=== PATIENT | male | born 1940 | race Caucasian/White ===

== ENCOUNTER 2016-03-11 19:29 | Inpatient (IN) | payer OTHER, MEDICARE ==
[~2016-03-11] VITALS: Ht 185.4 cm; Wt 62.4 kg
[2016-03-11 19:25] VITALS: O2SAT 97
[~2016-03-11 19:29] MED LIST: ADVA250A INH; ALBU1.25 NEB; CIPR500T2 PO; LISI2.5T3 PO; MORP30SU PR; MS C30TA5 PO; OMEP20CA5 PO; OXYC-103 PO; PRED50TA PO; VENTAER INH
[2016-03-11] MEDS ORDERED: ceFAZolin 2 GM PREMIX 50 ML ONE (19:33)
[2016-03-11] MEDS ORDERED: DIPHTH/TETANUS/ACEL PERTUSSIS (BOOSTER) 0.5 ML VIAL/PFS IM ONE ×2 (19:33→19:59)
[2016-03-11] MEDS ORDERED: MORPHINE SULFATE 8 MG/ML INJ ONE (19:44)
[2016-03-11] MEDS ORDERED: ONDANSETRON HCL 4 MG/2 ML VIAL ONE (19:48)
[2016-03-11] MEDS ORDERED: ceFAZolin 2 GM PREMIX 50 ML IV STA (19:59)
[2016-03-11] MEDS ORDERED: MORPHINE SULFATE 4 MG/ML INJ IV ONE (20:00)
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
[2016-03-11] MEDS ORDERED: IOHEXOL 350 MG/ML 10 ML VIAL (for RAD DIAG) IV ONE (20:03)
[2016-03-11 20:04] LABS: AUTOMATED NEUTROPHIL # 12.4 TH/MM3 (1.8-7.7); BASOPHIL % 0.2 % (0.0-2.0); EOSINOPHIL # 0.2 TH/MM3 (0-0.4); EOSINOPHIL % 1.3 % (0.0-4.0); HEMATOCRIT 37.9 % (39.0-51.0); HEMO FLAGS DIFF FINAL; LYMPH % 8.9 % (9.0-44.0); LYMPHOCYTE # 1.3 TH/MM3 (1.0-4.8); MEAN CELL VOLUME 90.8 FL (80.0-100.0); MEAN CORPUSCULAR HEMOGLOBIN 30.6 PG (27.0-34.0); MEAN CORPUSCULAR HGB CONC 33.7 % (32.0-36.0); MONO % 5.6 % (0.0-8.0); PLATELET COUNT 227 TH/MM3 (150-450); RED BLOOD COUNT 4.18 MIL/MM3 (4.50-5.90); RED CELL DISTRIBUTION WIDTH 13.5 % (11.6-17.2); WHITE BLOOD COUNT 14.8 TH/MM3 (4.0-11.0)
[2016-03-11 20:05] LABS: I-STAT POTASSIUM 4.4 MMOL/L (3.5-4.9)
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
[2016-03-11 20:15] VITALS: BP 133/66; PULSE 72; RESP 18; TEMP 98.2; O2SAT 97
[2016-03-11 20:15] LABS: APTT (PATIENT) 27.3 SEC (24.3-30.1); PROTHROMBIN TIME - PATIENT 11.4 SEC (9.8-11.6)
[2016-03-11] MEDS ORDERED: MORPHINE SULFATE 8 MG/ML INJ IV PUSH ONE (20:15)
[2016-03-11] MEDS ORDERED: LORazepam 2 MG TAB PO PRN (20:15)
[2016-03-11] MEDS ORDERED: ONDANSETRON HCL 4 MG/2 ML VIAL IV PRN (20:15)
[2016-03-11] MEDS ORDERED: FLUMAZENIL 0.5 MG/5 ML VIAL IV PUSH PRN (20:15)
[2016-03-11] MEDS ORDERED: LORazepam 1 MG TAB PO PRN (20:15)
[2016-03-11] MEDS ORDERED: MISCELLANEOUS NURSING INFORMATION XX SCH (20:15)
[2016-03-11] MEDS ORDERED: ACETAMINOPHEN/HYDROcodone 325 MG/5 MG TAB PO PRN (20:15)
[2016-03-11] MEDS ORDERED: ACETAMINOPHEN 325 MG TAB PO PRN (20:15)
[2016-03-11] MEDS ORDERED: ENALAPRILAT 1.25 MG/ML VIAL IV PRN (20:15)
[2016-03-11] MEDS ORDERED: MAGNESIUM HYDROXIDE SUSP 30 ML CUP PO PRN (20:15)
[2016-03-11] MEDS ORDERED: CHLORHEXIDINE GLUCONATE 2 % 1 PACK (2 CLOTHS) TOP PRN (20:15)
[2016-03-11] MEDS ORDERED: LORazepam 2 MG/ML VIAL IV PUSH PRN ×4 (20:15)
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
[2016-03-11 20:44] VITALS: O2SAT 97
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
[2016-03-11] MEDS: BACITRACIN TOP OINT 15 GM TUBE TOP SCH (21:00)
[2016-03-11] MEDS ORDERED: DOCUSATE SODIUM 100 MG CAP PO SCH (21:00)
[2016-03-11] MEDS ORDERED: PANTOPRAZOLE SODIUM 40 MG VIAL IVP SCH (21:00)
[2016-03-11] MEDS: MORPHINE SULFATE 4 MG/ML INJ IV PRN (21:28)
[2016-03-11] MEDS: FOLIC ACID 1 MG TAB PO SCH (21:53)
[2016-03-11] MEDS: THIAMINE HCL 100 MG TAB PO SCH (21:53)
[2016-03-11] MEDS: MULTIVITAMIN TAB PO SCH (21:53)
[2016-03-11] MEDS: SODIUM CHLOR 0.9% 1000 ML INJ 1,000 ML IV SCH (21:54)
[2016-03-11 22:00] VITALS: PULSE 62
[2016-03-11] MEDS: ACETAMINOPHEN/HYDROcodone 325 MG/5 MG TAB PO PRN (22:07)
[2016-03-11] MEDS: RESP: ALBUTEROL 2.5 MG/3 ML NEB (SCH) NEB (23:55)
[2016-03-12] VITALS (12 sets, daily range): BP systolic 83–139; BP diastolic 50–71; PULSE 56–71; RESP 16–31; TEMP 97.9–98.8; O2SAT 93–99
[2016-03-12 03:48] LABS: HEMATOCRIT 31.5 % (39.0-51.0); MEAN CELL VOLUME 90.8 FL (80.0-100.0); MEAN CORPUSCULAR HEMOGLOBIN 30.9 PG (27.0-34.0); PLATELET COUNT 193 TH/MM3 (150-450); RED BLOOD COUNT 3.46 MIL/MM3 (4.50-5.90); RED CELL DISTRIBUTION WIDTH 13.4 % (11.6-17.2); REVIEW FLAG FINAL; WHITE BLOOD COUNT 10.9 TH/MM3 (4.0-11.0)
[2016-03-12] MEDS: RESP: ALBUTEROL 2.5 MG/3 ML NEB (SCH) NEB ×3 (03:50→13:22)
[2016-03-12] MEDS: CHLORHEXIDINE GLUCONATE 2 % 1 PACK (2 CLOTHS) TOP SCH (04:43)
[2016-03-12] MEDS: MORPHINE SULFATE 4 MG/ML INJ IV PRN ×3 (05:11→12:47)
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
[2016-03-12] MEDS ORDERED: LACTULOSE SYRUP 20 GM/30 ML CUP PO PRN (07:45)
[2016-03-12] MEDS ORDERED: ACETAMINOPHEN 1000 MG/100 ML VIAL IV SCH (08:00)
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
[2016-03-12] MEDS: MAGNESIUM HYDROXIDE SUSP 30 ML CUP PO SCH (09:13)
[2016-03-12] MEDS: BACITRACIN TOP OINT 15 GM TUBE TOP SCH ×2 (09:14→20:48)
[2016-03-12] MEDS: THIAMINE HCL 100 MG TAB PO SCH (09:14)
[2016-03-12] MEDS: MULTIVITAMIN TAB PO SCH (09:14)
[2016-03-12] MEDS: FOLIC ACID 1 MG TAB PO SCH (09:14)
[2016-03-12] MEDS: DOCUSATE SODIUM 50 MG/SENNA 8.6 MG TAB PO SCH ×2 (09:14→20:47)
[2016-03-12] MEDS: LIDOCAINE HCL 5% PATCH TD SCH (09:15)
[2016-03-12] MEDS: SODIUM CHLOR 0.9% 1000 ML INJ 1,000 ML IV SCH ×2 (09:15→22:53)
[2016-03-12 09:26] LABS: BLOOD, URINE TRACE (NEG); GLUCOSE,URINE NEG (NEG); HYALINE CAST, URINE 1 /lpf (RARE); KETONE, URINE NEG (NEG); NITRITE,URINE NEG (NEG); SQUAMOUS EPITHELIAL CELL URINE 1 /hpf (0-5); URINE COLOR YELLOW (YELLW/STRAW)
[2016-03-12 09:28] LABS: COMMENT (UR) CULT NOT INDICATED; CULTURE IF INDICATED CULT NOT INDICATED
[2016-03-12 11:36] LABS: AUTOMATED NEUTROPHIL # 9.6 TH/MM3 (1.8-7.7); BASOPHIL % 0.3 % (0.0-2.0); EOSINOPHIL # 0.2 TH/MM3 (0-0.4); EOSINOPHIL % 1.5 % (0.0-4.0); HEMO FLAGS DIFF FINAL; LYMPH % 7.3 % (9.0-44.0); LYMPHOCYTE # 0.8 TH/MM3 (1.0-4.8); MEAN CORPUSCULAR HEMOGLOBIN 30.3 PG (27.0-34.0); MEAN CORPUSCULAR HGB CONC 32.9 % (32.0-36.0); MONO % 6.8 % (0.0-8.0); NEUT % 84.1 % (16.0-70.0); PLATELET COUNT 202 TH/MM3 (150-450); RED BLOOD COUNT 3.69 MIL/MM3 (4.50-5.90); RED CELL DISTRIBUTION WIDTH 13.4 % (11.6-17.2); WHITE BLOOD COUNT 11.4 TH/MM3 (4.0-11.0)
[2016-03-12 12:00] LABS: BICARBONATE 28.7 MEQ/L (21.0-32.0); MAGNESIUM 2.1 MG/DL (1.5-2.5); POTASSIUM 3.6 MEQ/L (3.5-5.1)
[2016-03-12 12:26] LABS: CKMB 7.4 NG/ML (0.5-3.6)
[2016-03-12] MEDS ORDERED: guaiFENesin/CODEINE SYRUP 200 MG/20 MG/10 ML CUP PO PRN (13:30)
[2016-03-12] MEDS ORDERED: RESP: ALBUTEROL 2.5 MG/3 ML NEB (PRN) INH (13:30)
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
[2016-03-12] MEDS ORDERED: SYMB80AE INH (14:48)
[2016-03-12] MEDS ORDERED: ATOR20TA15 PO (14:48)
[2016-03-12] MEDS ORDERED: MIRT30TA PO (14:48)
[2016-03-12] MEDS ORDERED: ZOLP5TAB3 PO (14:48)
[2016-03-12] MEDS ORDERED: LISI10TA PO (14:48)
[2016-03-12] MEDS ORDERED: MEGE40TA PO (14:48)
[2016-03-12] MEDS ORDERED: AZITHROMYCIN 250 MG TAB PO ONE (15:00)
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
[2016-03-12] MEDS: methylPREDNISolone SOD SUCC 125 MG/2 ML VIAL IVP SCH ×2 (15:19→20:47)
[2016-03-12] MEDS: RESP: ALBUTEROL 2.5 MG/IPRATROPIUM 0.5 MG NEB (SCH) INH ×2 (17:34→22:00)
[2016-03-12] MEDS: ACETAMINOPHEN/HYDROcodone 325 MG/5 MG TAB PO PRN (17:58)
[2016-03-12] MEDS: guaiFENesin E.R. 600 MG TAB PO SCH (20:47)
[2016-03-12] MEDS: cefTRIAXone INJ 1,000 MG in SODIUM CHLORIDE 0.9% INJ 100 ML IV SCH (20:47)
[2016-03-12] MEDS: REMOVE OLD PATCH T-DERMAL SCH (21:00)
[2016-03-13] VITALS (10 sets, daily range): BP systolic 108–170; BP diastolic 58–81; PULSE 62–73; RESP 15–24; TEMP 97.5–98.5; O2SAT 93–98
[2016-03-13] MEDS: ACETAMINOPHEN/HYDROcodone 325 MG/5 MG TAB PO PRN ×2 (02:39→08:47)
[2016-03-13] MEDS: methylPREDNISolone SOD SUCC 125 MG/2 ML VIAL IVP SCH ×2 (02:39→08:43)
[2016-03-13] MEDS: RESP: ALBUTEROL 2.5 MG/IPRATROPIUM 0.5 MG NEB (SCH) INH ×4 (03:22→23:30)
[2016-03-13] MEDS: CHLORHEXIDINE GLUCONATE 2 % 1 PACK (2 CLOTHS) TOP SCH (04:00)
[2016-03-13 04:38] LABS: BASOPHIL % 0.1 % (0.0-2.0); HEMATOCRIT 32.7 % (39.0-51.0); HEMO FLAGS DIFF FINAL; LYMPH % 4.2 % (9.0-44.0); LYMPHOCYTE # 0.4 TH/MM3 (1.0-4.8); MEAN CELL VOLUME 90.1 FL (80.0-100.0); MEAN CORPUSCULAR HEMOGLOBIN 31.5 PG (27.0-34.0); MEAN CORPUSCULAR HGB CONC 34.9 % (32.0-36.0); MONO % 1.7 % (0.0-8.0); PLATELET COUNT 189 TH/MM3 (150-450); RED BLOOD COUNT 3.62 MIL/MM3 (4.50-5.90); RED CELL DISTRIBUTION WIDTH 13.7 % (11.6-17.2); WHITE BLOOD COUNT 10.6 TH/MM3 (4.0-11.0)
[2016-03-13 05:08] LABS: POTASSIUM 4.2 MEQ/L (3.5-5.1)
[2016-03-13] MEDS ORDERED: DEXTROSE 50% IN WATER 50 ML VIAL(D50) IV PUSH PRN (05:45)
[2016-03-13] MEDS ORDERED: GLUCAGON 1 MG/ML VIAL OTHER PRN (05:45)
[2016-03-13] MEDS: INSULIN ASPART SUPPLEMENTAL SCALE SQ SCH ×3 (06:53→21:00)
[2016-03-13] MEDS: guaiFENesin E.R. 600 MG TAB PO SCH ×2 (08:43→21:22)
[2016-03-13] MEDS: DOCUSATE SODIUM 50 MG/SENNA 8.6 MG TAB PO SCH ×2 (08:43→21:00)
[2016-03-13] MEDS: MULTIVITAMIN TAB PO SCH (08:43)
[2016-03-13] MEDS: THIAMINE HCL 100 MG TAB PO SCH (08:43)
[2016-03-13] MEDS: PANTOPRAZOLE SOD 40 MG DELAYED RELEASE TAB PO SCH (08:43)
[2016-03-13] MEDS: FOLIC ACID 1 MG TAB PO SCH (08:43)
[2016-03-13] MEDS: LIDOCAINE HCL 5% PATCH TD SCH (08:44)
[2016-03-13] MEDS: BACITRACIN TOP OINT 15 GM TUBE TOP SCH ×2 (08:44→21:23)
[2016-03-13] MEDS: MAGNESIUM HYDROXIDE SUSP 30 ML CUP PO SCH (08:51)
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
[2016-03-13] MEDS ORDERED: NON-FORMULARY DRUG (Lisinopril-Hctz 1 TAB) PO SCH (11:30)
[2016-03-13 12:28] LABS: HEMOGLOBIN A1a 1.1 %; HEMOGLOBIN A1b 1.7 %; HEMOGLOBIN Ao 84.2 %; HEMOGLOBIN LA1C 2.8 %; HEMOGLOBIN P3 5.7 %
[2016-03-13] MEDS: AZITHROMYCIN 250 MG TAB PO SCH (13:49)
[2016-03-13] MEDS: ACETAMINOPHEN 1000 MG/100 ML VIAL IV SCH ×3 (13:50→22:30)
[2016-03-13] MEDS: predniSONE 20 MG TAB PO SCH (13:50)
[2016-03-13] MEDS: HYDROCHLOROTHIAZIDE 25 MG TAB PO SCH (13:50)
[2016-03-13] MEDS: CYCLOBENZAPRINE HCL 10 MG TAB PO SCH ×2 (13:50→21:22)
[2016-03-13] MEDS: LISINOPRIL 10 MG TAB PO SCH (13:50)
[2016-03-13] MEDS: ENOXAPARIN SODIUM 40 MG/0.4 ML SYRINGE SQ SCH (13:51)
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
[2016-03-13] MEDS: BUDESONIDE-FORMOTEROL 80/4.5 MCG INHALER INH SCH (21:00)
[2016-03-13] MEDS: MIRTAZAPINE 15 MG TAB PO SCH (21:00)
[2016-03-13] MEDS: REMOVE OLD PATCH T-DERMAL SCH (21:00)
[2016-03-13] MEDS: ATORVASTATIN 20 MG TAB PO SCH (21:22)
[2016-03-13] MEDS: cefTRIAXone INJ 1,000 MG in SODIUM CHLORIDE 0.9% INJ 100 ML IV SCH (21:23)
[2016-03-14] MEDS: CHLORHEXIDINE GLUCONATE 2 % 1 PACK (2 CLOTHS) TOP SCH (03:33)
[2016-03-14] MEDS: ACETAMINOPHEN 1000 MG/100 ML VIAL IV SCH (04:39)
[2016-03-14] MEDS: CYCLOBENZAPRINE HCL 10 MG TAB PO SCH ×3 (04:39→21:58)
[2016-03-14] MEDS: INSULIN ASPART SUPPLEMENTAL SCALE SQ SCH ×3 (05:51→15:48)
[2016-03-14 08:00] VITALS: BP 172/77; PULSE 66; RESP 17; TEMP 96.7; O2SAT 96
[2016-03-14] MEDS: RESP: ALBUTEROL 2.5 MG/IPRATROPIUM 0.5 MG NEB (SCH) INH ×3 (08:40→21:17)
[2016-03-14] MEDS: LIDOCAINE HCL 5% PATCH TD SCH (08:44)
[2016-03-14] MEDS: MEGESTROL ACETATE 40 MG TAB PO SCH (08:45)
[2016-03-14] MEDS: guaiFENesin E.R. 600 MG TAB PO SCH ×2 (08:45→21:58)
[2016-03-14] MEDS: MULTIVITAMIN TAB PO SCH (08:45)
[2016-03-14] MEDS: FOLIC ACID 1 MG TAB PO SCH (08:45)
[2016-03-14] MEDS: HYDROCHLOROTHIAZIDE 25 MG TAB PO SCH (08:45)
[2016-03-14] MEDS: predniSONE 20 MG TAB PO SCH (08:46)
[2016-03-14] MEDS: LISINOPRIL 10 MG TAB PO SCH (08:46)
[2016-03-14] MEDS: DOCUSATE SODIUM 50 MG/SENNA 8.6 MG TAB PO SCH ×2 (08:46→21:00)
[2016-03-14] MEDS: THIAMINE HCL 100 MG TAB PO SCH (08:47)
[2016-03-14] MEDS: PANTOPRAZOLE SOD 40 MG DELAYED RELEASE TAB PO SCH (08:47)
[2016-03-14] MEDS: BUDESONIDE-FORMOTEROL 80/4.5 MCG INHALER INH SCH ×2 (08:48→22:09)
[2016-03-14] MEDS: MAGNESIUM HYDROXIDE SUSP 30 ML CUP PO SCH (08:48)
[2016-03-14] MEDS: BACITRACIN TOP OINT 15 GM TUBE TOP SCH ×2 (08:48→22:09)
[2016-03-14] MEDS ORDERED: BISACODYL 10 MG SUPP RECTAL ONE (09:00)
[2016-03-14] MEDS ORDERED: BISACODYL EC 5 MG TABEC PO ONE (09:00)
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
[2016-03-14] MEDS: ENOXAPARIN SODIUM 40 MG/0.4 ML SYRINGE SQ SCH (11:40)
[2016-03-14 12:00] VITALS: BP 143/68; PULSE 62; RESP 18; TEMP 96.8; O2SAT 96
[2016-03-14] MEDS: AZITHROMYCIN 250 MG TAB PO SCH (13:16)
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
[2016-03-14 15:36] VITALS: O2SAT 91
[2016-03-14] MEDS: ACETAMINOPHEN/HYDROcodone 325 MG/5 MG TAB PO PRN (15:48)
[2016-03-14 16:00] VITALS: BP 124/65; PULSE 74; RESP 19; TEMP 97; O2SAT 92
[2016-03-14 20:00] VITALS: BP 99/57; PULSE 67; RESP 18; TEMP 97.8; O2SAT 94
[2016-03-14] MEDS: REMOVE OLD PATCH T-DERMAL SCH (21:00)
[2016-03-14] MEDS: MIRTAZAPINE 15 MG TAB PO SCH (21:00)
[2016-03-14] MEDS: ATORVASTATIN 20 MG TAB PO SCH (21:57)
[2016-03-14] MEDS: cefTRIAXone INJ 1,000 MG in SODIUM CHLORIDE 0.9% INJ 100 ML IV SCH (21:58)
[2016-03-15] VITALS (8 sets, daily range): BP systolic 106–145; BP diastolic 59–89; PULSE 71–84; RESP 16–21; TEMP 97–98.2; O2SAT 78–98
[2016-03-15] MEDS: RESP: ALBUTEROL 2.5 MG/IPRATROPIUM 0.5 MG NEB (SCH) INH ×4 (03:38→21:02)
[2016-03-15] MEDS: CYCLOBENZAPRINE HCL 10 MG TAB PO SCH ×3 (05:56→20:52)
[2016-03-15] MEDS: ACETAMINOPHEN/HYDROcodone 325 MG/5 MG TAB PO PRN ×3 (08:24→17:46)
[2016-03-15] MEDS: predniSONE 20 MG TAB PO SCH (08:25)
[2016-03-15] MEDS: guaiFENesin E.R. 600 MG TAB PO SCH ×2 (08:25→20:52)
[2016-03-15] MEDS: MAGNESIUM HYDROXIDE SUSP 30 ML CUP PO SCH (08:25)
[2016-03-15] MEDS: MEGESTROL ACETATE 40 MG TAB PO SCH (08:25)
[2016-03-15] MEDS: LISINOPRIL 10 MG TAB PO SCH (08:26)
[2016-03-15] MEDS: HYDROCHLOROTHIAZIDE 25 MG TAB PO SCH (08:26)
[2016-03-15] MEDS: PANTOPRAZOLE SOD 40 MG DELAYED RELEASE TAB PO SCH (08:26)
[2016-03-15] MEDS: DOCUSATE SODIUM 50 MG/SENNA 8.6 MG TAB PO SCH ×2 (08:27→20:52)
[2016-03-15] MEDS: LIDOCAINE HCL 5% PATCH TD SCH (08:28)
[2016-03-15] MEDS: ENOXAPARIN SODIUM 40 MG/0.4 ML SYRINGE SQ SCH (11:00)
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
[2016-03-15] MEDS: AZITHROMYCIN 250 MG TAB PO SCH (14:18)
[2016-03-15] MEDS: BUDESONIDE-FORMOTEROL 80/4.5 MCG INHALER INH SCH ×2 (14:20→20:58)
[2016-03-15] MEDS: BACITRACIN TOP OINT 15 GM TUBE TOP SCH ×2 (14:27→20:58)
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
[2016-03-15] MEDS: MIRTAZAPINE 15 MG TAB PO SCH (20:52)
[2016-03-15] MEDS: cefTRIAXone INJ 1,000 MG in SODIUM CHLORIDE 0.9% INJ 100 ML IV SCH (20:52)
[2016-03-15] MEDS: ATORVASTATIN 20 MG TAB PO SCH (20:52)
[2016-03-15] MEDS: ZOLPIDEM TARTRATE 5 MG TAB PO PRN (20:52)
[2016-03-15] MEDS: REMOVE OLD PATCH T-DERMAL SCH (20:57)
[2016-03-16] VITALS (7 sets, daily range): BP systolic 95–137; BP diastolic 54–71; PULSE 66–112; RESP 16–20; TEMP 96.4–98.3; O2SAT 96–99
[2016-03-16] MEDS: RESP: ALBUTEROL 2.5 MG/IPRATROPIUM 0.5 MG NEB (SCH) INH ×4 (04:05→19:12)
[2016-03-16] MEDS: CYCLOBENZAPRINE HCL 10 MG TAB PO SCH ×3 (06:24→20:55)
[2016-03-16] MEDS: ACETAMINOPHEN/HYDROcodone 325 MG/5 MG TAB PO PRN ×2 (06:25→12:15)
[2016-03-16] MEDS: LISINOPRIL 10 MG TAB PO SCH (08:23)
[2016-03-16] MEDS: MEGESTROL ACETATE 40 MG TAB PO SCH (08:23)
[2016-03-16] MEDS: predniSONE 20 MG TAB PO SCH (08:24)
[2016-03-16] MEDS: guaiFENesin E.R. 600 MG TAB PO SCH ×2 (08:24→22:38)
[2016-03-16] MEDS: PANTOPRAZOLE SOD 40 MG DELAYED RELEASE TAB PO SCH (08:24)
[2016-03-16] MEDS: DOCUSATE SODIUM 50 MG/SENNA 8.6 MG TAB PO SCH ×2 (08:25→20:56)
[2016-03-16] MEDS: HYDROCHLOROTHIAZIDE 25 MG TAB PO SCH (08:25)
[2016-03-16] MEDS: MAGNESIUM HYDROXIDE SUSP 30 ML CUP PO SCH (08:26)
[2016-03-16] MEDS: LIDOCAINE HCL 5% PATCH TD SCH (08:26)
[2016-03-16] MEDS: BUDESONIDE-FORMOTEROL 80/4.5 MCG INHALER INH SCH ×2 (08:26→20:56)
[2016-03-16] MEDS: BACITRACIN TOP OINT 15 GM TUBE TOP SCH ×2 (09:00→20:57)
[2016-03-16] MEDS: ENOXAPARIN SODIUM 40 MG/0.4 ML SYRINGE SQ SCH (12:15)
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
[2016-03-16] MEDS ORDERED: ceFAZolin 2 GM PREMIX 50 ML IV SCH (12:45)
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
[2016-03-16] MEDS: AZITHROMYCIN 250 MG TAB PO SCH (14:55)
[2016-03-16] MEDS ORDERED: OXYC1CAP PO (15:09)
[2016-03-16] MEDS ORDERED: ALBU0.08 NEB (15:53)
[2016-03-16] MEDS ORDERED: ALBU6.7H INH (15:53)
[2016-03-16] MEDS ORDERED: MORP15TA73 PO ×3 (15:53)
[2016-03-16] MEDS ORDERED: FLUO0.05 TOPICAL (15:53)
[2016-03-16] MEDS ORDERED: LOPE2CAP PO (15:53)
[2016-03-16] MEDS ORDERED: LISI10TA PO (15:53)
[2016-03-16] MEDS ORDERED: ENSULIQ8 PO (15:55)
[2016-03-16] MEDS ORDERED: MORPHINE SULFATE 4 MG/ML INJ IV PRN (16:00)
[2016-03-16] MEDS: ZOLPIDEM TARTRATE 5 MG TAB PO PRN (20:53)
[2016-03-16] MEDS: cefTRIAXone INJ 1,000 MG in SODIUM CHLORIDE 0.9% INJ 100 ML IV SCH (20:53)
[2016-03-16] MEDS: MIRTAZAPINE 15 MG TAB PO SCH (20:55)
[2016-03-16] MEDS: ATORVASTATIN 20 MG TAB PO SCH (20:55)
[2016-03-16] MEDS: REMOVE OLD PATCH T-DERMAL SCH (20:57)
[2016-03-17] VITALS: BP 111/63; PULSE 66; RESP 20; TEMP 96.9; O2SAT 95
[2016-03-17] MEDS: RESP: ALBUTEROL 2.5 MG/IPRATROPIUM 0.5 MG NEB (SCH) INH ×4 (03:17→22:00)
[2016-03-17] MEDS: CYCLOBENZAPRINE HCL 10 MG TAB PO SCH ×3 (06:00→20:11)
[2016-03-17] MEDS ORDERED: PHENYLEPH/NS 1000 MCG/10 ML SYR IV ONE (07:59)
[2016-03-17] MEDS ORDERED: PROPOFOL 200 MG/20 ML AMP IV ONE (07:59)
[2016-03-17 08:00] VITALS: BP 140/80; PULSE 68; RESP 16; TEMP 96.7; O2SAT 95
[2016-03-17] MEDS: guaiFENesin E.R. 600 MG TAB PO SCH ×2 (08:29→20:10)
[2016-03-17] MEDS: predniSONE 20 MG TAB PO SCH (08:29)
[2016-03-17] MEDS: LISINOPRIL 10 MG TAB PO SCH (08:29)
[2016-03-17] MEDS: PANTOPRAZOLE SOD 40 MG DELAYED RELEASE TAB PO SCH (08:30)
[2016-03-17] MEDS: HYDROCHLOROTHIAZIDE 25 MG TAB PO SCH (08:30)
[2016-03-17] MEDS: DOCUSATE SODIUM 50 MG/SENNA 8.6 MG TAB PO SCH ×3 (08:30→21:00)
[2016-03-17] MEDS: MEGESTROL ACETATE 40 MG TAB PO SCH (08:30)
[2016-03-17] MEDS: MAGNESIUM HYDROXIDE SUSP 30 ML CUP PO SCH (08:30)
[2016-03-17] MEDS: BUDESONIDE-FORMOTEROL 80/4.5 MCG INHALER INH SCH ×2 (08:34→20:11)
[2016-03-17] MEDS: LIDOCAINE HCL 5% PATCH TD SCH (08:37)
[2016-03-17] MEDS: BACITRACIN TOP OINT 15 GM TUBE TOP SCH ×2 (08:39→20:13)
[2016-03-17 09:41] VITALS: O2SAT 95
[2016-03-17] MEDS ORDERED: fentaNYL CITRATE 250 MCG/5 ML AMP ONE (10:36)
[2016-03-17] MEDS ORDERED: ARTIFICIAL TEARS OPTH OINT 3.5 APPLIC/3.5 GM TUBO ONE (10:36)
[2016-03-17] MEDS ORDERED: MIDAZOLAM HCL 2 MG/2 ML VIAL ONE (10:36)
[2016-03-17] MEDS ORDERED: SUGAMMADEX SODIUM 200 MG/2 ML VIAL IV PUSH ONE ×2 (10:37)
[2016-03-17] MEDS ORDERED: HEPARIN SODIUM - IV 10,000 UNITS/10 ML VIAL ONE (11:53)
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
[2016-03-17] MEDS ORDERED: IODIXANOL 320 MG/ML 50 ML VIAL (for RAD SPEC) I-ARTERIAL ONE (13:33)
[2016-03-17] MEDS ORDERED: *RESP: ALBUTEROL 2.5 MG/3 ML NEB (PRN) PERIprocedural Use ONLY NEB ONE (14:01)
[2016-03-17] MEDS ORDERED: *ENALAPRILAT 1.25 MG/ML VIAL PERIprocedural Use ONLY ONE ×2 (14:01→15:50)
[2016-03-17] MEDS ORDERED: SODIUM CHLOR 0.9% 1000 ML INJ 1,000 ML IV SCH (14:03)
--- NOTE | 2016-03-17 14:07 | PD.RAD ---
Post Procedure Progress Note Pre Procedure Diagnosis: (1) Abdominal aortic aneurysm (AAA) >39 mm diameter Post Procedure Diagnosis: (1) Abdominal aortic aneurysm (AAA) >39 mm diameter Procedure Date: Mar 17, 2016 Supervising Radiologist: Curt Isaacs Anesthesia: General, Local Plan of Activity Patient to Unit: Critical Care Patient Condition: Fair Additional Comments: PT post AAA repair with endograft. Combined procedure with Dr. Chung. No endoleak post procedure. Graft in excellent position Groins closed with Perclose suture. Full dictated report to follow. See PACS Report for procedural detail/treatment Curt Isaacs MD Mar 17, 2016 14:07
[2016-03-17] MEDS ORDERED: *LABETALOL HCL 100 MG/20 ML VIAL PERIprocedural Use ONLY ONE (14:10)
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
[2016-03-17] MEDS ORDERED: *morphine SULFATE 8 MG/ML PERIprocedure ONLY ONE ×2 (15:02→15:32)
[2016-03-17] MEDS ORDERED: CEFT500T3 PO (15:31)
[2016-03-17] MEDS ORDERED: DILT31TA PO (15:31)
[2016-03-17] MEDS ORDERED: NITROGLYCERIN 2% OINT 1 GM PACKET ONE (15:34)
[2016-03-17] MEDS ORDERED: NITROGLYCERIN 2% OINT 1 GM PACKET TOPICAL ONE (15:45)
--- NOTE | 2016-03-17 16:08 | EKG ---
Date Performed: 03/17/2016 Time Performed: 11:07:35 PTAGE: 76 years EKG: Sinus rhythm LEFT ANTERIOR FASCICULAR BLOCK SEPTAL MYOCARDIAL INFARCTION , OF INDETERMINATE AGE ABNORMAL ECG PREVIOUS TRACING : 04/12/2009 14.39 Compared to the previous tracing, PAC no longer present DOCTOR: Nathaniel Rooney Interpretating Date/Time 03/17/2016 16:07:18
[2016-03-17 16:15] VITALS: BP 156/73; PULSE 111; RESP 19; TEMP 98.3; O2SAT 100
[2016-03-17] MEDS: SODIUM CHLOR 0.9% 1000 ML INJ 1,000 ML IV SCH (17:14)
[2016-03-17] MEDS: DILTIAZEM HCL 30 MG TAB PO SCH ×3 (17:59→22:41)
[2016-03-17 20:00] VITALS: BP 109/54; PULSE 62; RESP 15; TEMP 97.3; O2SAT 99
[2016-03-17] MEDS: MIRTAZAPINE 15 MG TAB PO SCH (20:10)
[2016-03-17] MEDS: ZOLPIDEM TARTRATE 5 MG TAB PO PRN ×2 (20:11→22:20)
[2016-03-17] MEDS: ATORVASTATIN 20 MG TAB PO SCH (20:11)
[2016-03-17] MEDS: REMOVE OLD PATCH T-DERMAL SCH (20:12)
[2016-03-17 23:01] VITALS: O2SAT 100
[2016-03-18] VITALS (11 sets, daily range): BP systolic 106–147; BP diastolic 63–85; PULSE 53–86; RESP 15–27; TEMP 96.8–99.9; O2SAT 96–99
[2016-03-18] MEDS: RESP: ALBUTEROL 2.5 MG/IPRATROPIUM 0.5 MG NEB (SCH) INH ×4 (04:00→21:45)
[2016-03-18 04:22] LABS: AUTOMATED NEUTROPHIL # 12.7 TH/MM3 (1.8-7.7); EOSINOPHIL % 0.2 % (0.0-4.0); HEMATOCRIT 29.9 % (39.0-51.0); HEMO FLAGS DIFF FINAL; LYMPHOCYTE # 1.7 TH/MM3 (1.0-4.8); MEAN CELL VOLUME 90.8 FL (80.0-100.0); MEAN CORPUSCULAR HEMOGLOBIN 30.5 PG (27.0-34.0); MEAN CORPUSCULAR HGB CONC 33.5 % (32.0-36.0); MONO % 6.5 % (0.0-8.0); NEUT % 82.3 % (16.0-70.0); PLATELET COUNT 250 TH/MM3 (150-450); RED BLOOD COUNT 3.29 MIL/MM3 (4.50-5.90); RED CELL DISTRIBUTION WIDTH 13.5 % (11.6-17.2); WHITE BLOOD COUNT 15.4 TH/MM3 (4.0-11.0)
[2016-03-18 04:46] LABS: MAGNESIUM 2.2 MG/DL (1.5-2.5); POTASSIUM 3.9 MEQ/L (3.5-5.1)
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
[2016-03-18] MEDS: SODIUM CHLOR 0.9% 1000 ML INJ 1,000 ML IV SCH (05:53)
[2016-03-18] MEDS: CYCLOBENZAPRINE HCL 10 MG TAB PO SCH ×3 (06:27→20:46)
[2016-03-18] MEDS ORDERED: BISACODYL EC 5 MG TABEC PO ONE (07:30)
[2016-03-18] MEDS ORDERED: BISACODYL 10 MG SUPP RECTAL ONE (07:30)
[2016-03-18] MEDS: MAGNESIUM HYDROXIDE SUSP 30 ML CUP PO SCH ×2 (08:59→09:00)
[2016-03-18] MEDS: predniSONE 20 MG TAB PO SCH (09:00)
[2016-03-18] MEDS: MEGESTROL ACETATE 40 MG TAB PO SCH (09:00)
[2016-03-18] MEDS: DILTIAZEM HCL 30 MG TAB PO SCH ×4 (09:00→20:45)
[2016-03-18] MEDS ORDERED: CEFUROXIME AXETIL 500 MG TAB PO SCH (09:00)
[2016-03-18] MEDS: DOCUSATE SODIUM 50 MG/SENNA 8.6 MG TAB PO SCH ×2 (09:00→20:45)
[2016-03-18] MEDS: HYDROCHLOROTHIAZIDE 25 MG TAB PO SCH (09:00)
[2016-03-18] MEDS: guaiFENesin E.R. 600 MG TAB PO SCH ×2 (09:00→20:46)
[2016-03-18] MEDS: LISINOPRIL 10 MG TAB PO SCH (09:01)
[2016-03-18] MEDS: PANTOPRAZOLE SOD 40 MG DELAYED RELEASE TAB PO SCH (09:01)
[2016-03-18] MEDS: BACITRACIN TOP OINT 15 GM TUBE TOP SCH ×2 (09:02→20:48)
[2016-03-18] MEDS: BUDESONIDE-FORMOTEROL 80/4.5 MCG INHALER INH SCH ×2 (09:02→20:44)
[2016-03-18] MEDS: LIDOCAINE HCL 5% PATCH TD SCH (09:02)
[2016-03-18] MEDS ORDERED: MAGNESIUM SULFATE INJ 2 GM in SODIUM CHLORIDE 0.9% INJ 96 ML IV PRN (09:15)
[2016-03-18] MEDS ORDERED: POTASSIUM CHLOR 20 MEQ PREMIX 100 ML IV PRN ×2 (09:15)
[2016-03-18] MEDS ORDERED: SODIUM PHOSPHATE INJ 30 MMOL in SODIUM CHLOR 0.9% 250 ML INJ 240 ML IV PRN (09:15)
[2016-03-18] MEDS ORDERED: BISACODYL 10 MG SUPP PR PRN (09:15)
[2016-03-18] MEDS ORDERED: LACTULOSE SYRUP 20 GM/30 ML CUP PO PRN (09:15)
[2016-03-18] MEDS ORDERED: MAGNESIUM HYDROXIDE SUSP 30 ML CUP PO PRN (09:15)
[2016-03-18] MEDS ORDERED: DOCUSATE SODIUM 100 MG CAP PO PRN (09:15)
[2016-03-18] MEDS ORDERED: POTASSIUM PHOSPHATE INJ 30 MMOL in SODIUM CHLOR 0.9% 250 ML INJ 250 ML IV PRN (09:15)
[2016-03-18] MEDS ORDERED: MAGNESIUM OXIDE 400 MG TAB PO PRN (09:15)
[2016-03-18] MEDS ORDERED: POTASSIUM CL 40 MEQ/30 ML LIQ UDC PO/TUBE PRN ×2 (09:15)
[2016-03-18] MEDS ORDERED: MAGNESIUM SULFATE INJ 4 GM in SODIUM CHLORIDE 0.9% INJ 92 ML IV PRN (09:15)
[2016-03-18] MEDS ORDERED: POTASSIUM CHLOR 40 MEQ PREMIX 100 ML IV PRN ×2 (09:15)
[2016-03-18] MEDS ORDERED: POTASSIUM PHOSPHATE MONOBASIC 500 MG TAB PO PRN (09:15)
[2016-03-18] MEDS ORDERED: POTASSIUM PHOSPHATE MONOBASIC 500 MG TAB PO/TUBE PRN (09:15)
[2016-03-18] MEDS: PIPERACIL-TAZO 4.5 GM PREMIX 100 ML IV SCH ×3 (10:00→20:45)
--- NOTE | 2016-03-18 10:21 | PD.CAR.PN ---
CVT Progress Note Subjective/Hospital Course: Patient is status post endovascular abdominal aortic aneurysm repair Groin incisions are clean and dry and patient is excellent distal pulses Transferred to floor today for further care Patient has severe COPD and therefore requires additional oxygen therapy He will need extensive physical rehabilitation therapy In addition patient was scheduled to undergo some sort of aortic surgery at [facility] I'm going to consult cardiac surgeons here to evaluate the patient for the same. 2-D echo ordered Objective: Vital Signs Date Time Temp Pulse Resp B/P Pulse Ox O2 Delivery O2 Flow Rate FiO2 03/18/16 07:36 24 03/18/16 07:00 99 Nasal Cannula 2.00 03/18/16 06:00 57 03/18/16 04:00 60 03/18/16 04:00 97.9 60 15 128/85 99 03/18/16 02:00 68 03/18/16 00:00 99.9 62 16 147/63 99 03/18/16 00:00 68 03/17/16 23:01 100 Nasal Cannula 2.00 03/17/16 20:00 97.3 62 15 109/54 99 Arterial Line 03/17/16 19:00 100 Nasal Cannula 2.00 03/17/16 16:15 98.3 111 19 156/73 100 03/17/16 16:15 100 Nasal Cannula 3.00 03/17/16 15:45 97.7 62 18 161/99 98 Nasal Cannula 3 03/17/16 15:30 105 20 152/99 98 Nasal Cannula 3 03/17/16 15:00 107 20 148/99 98 Nasal Cannula 3 03/17/16 14:30 108 20 147/84 97 Nasal Cannula 3 03/17/16 14:15 114 17 139/79 97 Nasal Cannula 3 03/17/16 14:00 83 18 153/74 96 Nasal Cannula 3 03/17/16 13:45 83 14 154/86 96 Nasal Cannula 3 03/17/16 13:32 97.4 93 14 147/90 96 Nasal Cannula 3 132/86 Labs: Laboratory Tests Test 03/18/16 03:47 White Blood Count 15.4 TH/MM3 (4.0-11.0) Red Blood Count 3.29 MIL/MM3 (4.50-5.90) Hemoglobin 10.0 GM/DL (13.0-17.0) Hematocrit 29.9 % (39.0-51.0) Mean Corpuscular Volume 90.8 FL (80.0-100.0) Mean Corpuscular Hemoglobin 30.5 PG (27.0-34.0) Mean Corpuscular Hemoglobin 33.5 % Concent (32.0-36.0) Red Cell Distribution Width 13.5 % (11.6-17.2) Platelet Count 250 TH/MM3 (150-450) Mean Platelet Volume 8.4 FL (7.0-11.0) Neutrophils (%) (Auto) 82.3 % (16.0-70.0) Lymphocytes (%) (Auto) 11.0 % (9.0-44.0) Monocytes (%) (Auto) 6.5 % (0.0-8.0) Eosinophils (%) (Auto) 0.2 % (0.0-4.0) Basophils (%) (Auto) 0.0 % (0.0-2.0) Neutrophils # (Auto) 12.7 TH/MM3 (1.8-7.7) Lymphocytes # (Auto) 1.7 TH/MM3 (1.0-4.8) Monocytes # (Auto) 1.0 TH/MM3 (0-0.9) Eosinophils # (Auto) 0.0 TH/MM3 (0-0.4) Basophils # (Auto) 0.0 TH/MM3 (0-0.2) CBC Comment DIFF FINAL Differential Comment Sodium Level 142 MEQ/L (136-145) Potassium Level 3.9 MEQ/L (3.5-5.1) Chloride Level 107 MEQ/L (98-107) Carbon Dioxide Level 27.0 MEQ/L (21.0-32.0) Anion Gap 8 MEQ/L (5-15) Blood Urea Nitrogen 27 MG/DL (7-18) Creatinine 1.19 MG/DL (0.60-1.30) Estimat Glomerular Filtration 59 ML/MIN (>89) Rate Random Glucose 96 MG/DL (74-106) Calcium Level 8.1 MG/DL (8.5-10.1) Phosphorus Level 2.2 MG/DL (2.5-4.9) Magnesium Level 2.2 MG/DL (1.5-2.5) Thyroid Stimulating Hormone 1.270 uIU/ML 3rd Gen (0.358-3.740) Result Diagram: 03/18/16 0347 03/18/16 0347 Robinson Mckay MD Mar 18, 2016 10:21
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
[2016-03-18] MEDS: POTASSIUM PHOSPHATE MONOBASIC 500 MG TAB PO SCH ×2 (15:33→20:46)
[2016-03-18] MEDS: SODIUM CHLORIDE 0.9% FLUSH 5 ML FLUSH IVF PRN (20:45)
[2016-03-18] MEDS: MIRTAZAPINE 15 MG TAB PO SCH (20:46)
[2016-03-18] MEDS: ATORVASTATIN 20 MG TAB PO SCH (20:46)
[2016-03-18] MEDS: REMOVE OLD PATCH T-DERMAL SCH (20:47)
[2016-03-19] VITALS (8 sets, daily range): BP systolic 101–120; BP diastolic 50–73; PULSE 60–76; RESP 16–20; TEMP 95.3–97.1; O2SAT 94–98
[2016-03-19] MEDS: PIPERACIL-TAZO 4.5 GM PREMIX 100 ML IV SCH ×4 (04:46→19:51)
[2016-03-19] MEDS: CYCLOBENZAPRINE HCL 10 MG TAB PO SCH ×3 (04:46→19:51)
[2016-03-19] MEDS: RESP: ALBUTEROL 2.5 MG/IPRATROPIUM 0.5 MG NEB (SCH) INH ×4 (05:01→21:00)
[2016-03-19 05:26] LABS: BICARBONATE 26.4 MEQ/L (21.0-32.0); MAGNESIUM 2.3 MG/DL (1.5-2.5); POTASSIUM 4.1 MEQ/L (3.5-5.1)
[2016-03-19 05:34] LABS: AUTOMATED NEUTROPHIL # 14.6 TH/MM3 (1.8-7.7); BASOPHIL % 0.1 % (0.0-2.0); EOSINOPHIL % 0.1 % (0.0-4.0); HEMATOCRIT 32.7 % (39.0-51.0); LYMPH % 5.4 % (9.0-44.0); LYMPHOCYTE # 0.9 TH/MM3 (1.0-4.8); MEAN CELL VOLUME 91.4 FL (80.0-100.0); MEAN CORPUSCULAR HEMOGLOBIN 30.5 PG (27.0-34.0); MEAN CORPUSCULAR HGB CONC 33.4 % (32.0-36.0); MONO % 6.3 % (0.0-8.0); NEUT % 88.1 % (16.0-70.0); PLATELET COUNT 278 TH/MM3 (150-450); RED BLOOD COUNT 3.58 MIL/MM3 (4.50-5.90); RED CELL DISTRIBUTION WIDTH 13.8 % (11.6-17.2); WHITE BLOOD COUNT 16.6 TH/MM3 (4.0-11.0)
[2016-03-19 05:49] LABS: HEMO FLAGS AUTO DIFF
[2016-03-19 07:12] LABS: BANDS 2 % (0-6); METAMYELOCYTES 2 % (0-1); NEUTROPHIL # MANUAL DIFF 14.3 TH/MM3 (1.8-7.7); PLATELET ESTIMATE SMEAR NORMAL (NORMAL); PLATELET MORPHOLOGY NORMAL (NORMAL); POLYS (SEG NEUTROPHILS) 82 % (16-70); SCAN/DIFF FINAL DIFF MANUAL; WBC DIFF SAMPLE 100
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
[2016-03-19] MEDS ORDERED: OXYGENTANK NAS.CANULA (08:35)
[2016-03-19] MEDS ORDERED: WALKER WHEELS/F1 MIS (08:36)
[2016-03-19] MEDS: POTASSIUM PHOSPHATE MONOBASIC 500 MG TAB PO SCH (08:43)
[2016-03-19] MEDS: DOCUSATE SODIUM 50 MG/SENNA 8.6 MG TAB PO SCH ×2 (08:43→19:52)
[2016-03-19] MEDS: HYDROCHLOROTHIAZIDE 25 MG TAB PO SCH (08:43)
[2016-03-19] MEDS: guaiFENesin E.R. 600 MG TAB PO SCH ×2 (08:43→19:51)
[2016-03-19] MEDS: DILTIAZEM HCL 30 MG TAB PO SCH ×4 (08:44→19:52)
[2016-03-19] MEDS: LIDOCAINE HCL 5% PATCH TD SCH (08:51)
[2016-03-19] MEDS: POLYETHYLENE GLYCOL 17 GM PKG PO SCH (08:51)
[2016-03-19] MEDS: LISINOPRIL 10 MG TAB PO SCH (08:52)
[2016-03-19] MEDS: MEGESTROL ACETATE 40 MG TAB PO SCH (08:52)
[2016-03-19] MEDS: PANTOPRAZOLE SOD 40 MG DELAYED RELEASE TAB PO SCH (08:52)
[2016-03-19] MEDS: BUDESONIDE-FORMOTEROL 80/4.5 MCG INHALER INH SCH ×2 (08:52→19:53)
[2016-03-19] MEDS: MAGNESIUM HYDROXIDE SUSP 30 ML CUP PO SCH (08:52)
[2016-03-19] MEDS ORDERED: LEVA750T PO (09:15)
[2016-03-19] MEDS: LACTULOSE SYRUP 20 GM/30 ML CUP PO ONE ×2 (09:37→09:42)
[2016-03-19] MEDS: BACITRACIN TOP OINT 15 GM TUBE TOP SCH ×2 (09:37→19:52)
--- NOTE | 2016-03-19 10:41 | PD.CAR.PN ---
CVT Progress Note Subjective/Hospital Course: Patient is status post endovascular abdominal aortic aneurysm repair I was asked to see this patient for a h/o aortic stenosis. I am awaiting the echocardiogram before formally discussing any plans for surgical intervention. If the patient has severe , he would need a left and right heart cath as well. Objective: Vital Signs Date Time Temp Pulse Resp B/P Pulse Ox O2 Delivery O2 Flow Rate FiO2 03/19/16 10:26 94 Nasal Cannula 2.00 03/19/16 09:15 2.00 03/19/16 07:44 20 03/19/16 04:00 97.1 60 18 113/70 98 03/19/16 00:00 97.0 65 20 113/68 98 03/18/16 21:45 98 Nasal Cannula 2.00 03/18/16 20:02 78 03/18/16 20:00 Nasal Cannula 2.00 03/18/16 20:00 97.3 86 20 121/73 97 03/18/16 16:00 97.7 53 17 110/73 97 03/18/16 12:00 96.8 64 17 106/68 96 03/18/16 11:48 20 03/18/16 11:20 2.00 Labs: Laboratory Tests Test 03/19/16 03:29 White Blood Count 16.6 TH/MM3 (4.0-11.0) Red Blood Count 3.58 MIL/MM3 (4.50-5.90) Hemoglobin 10.9 GM/DL (13.0-17.0) Hematocrit 32.7 % (39.0-51.0) Mean Corpuscular Volume 91.4 FL (80.0-100.0) Mean Corpuscular Hemoglobin 30.5 PG (27.0-34.0) Mean Corpuscular Hemoglobin 33.4 % Concent (32.0-36.0) Red Cell Distribution Width 13.8 % (11.6-17.2) Platelet Count 278 TH/MM3 (150-450) Mean Platelet Volume 8.7 FL (7.0-11.0) Neutrophils (%) (Auto) 88.1 % (16.0-70.0) Lymphocytes (%) (Auto) 5.4 % (9.0-44.0) Monocytes (%) (Auto) 6.3 % (0.0-8.0) Eosinophils (%) (Auto) 0.1 % (0.0-4.0) Basophils (%) (Auto) 0.1 % (0.0-2.0) Neutrophils # (Auto) 14.6 TH/MM3 (1.8-7.7) Lymphocytes # (Auto) 0.9 TH/MM3 (1.0-4.8) Monocytes # (Auto) 1.0 TH/MM3 (0-0.9) Eosinophils # (Auto) 0.0 TH/MM3 (0-0.4) Basophils # (Auto) 0.0 TH/MM3 (0-0.2) CBC Comment AUTO DIFF Differential Total Cells 100 Counted Neutrophils % (Manual) 82 % (16-70) Band Neutrophils % 2 % (0-6) Lymphocytes % 5 % (9-44) Monocytes % 9 % (0-8) Neutrophils # (Manual) 14.3 TH/MM3 (1.8-7.7) Metamyelocytes 2 % (0-1) Differential Comment FINAL DIFF MANUAL Platelet Estimate NORMAL (NORMAL) Platelet Morphology Comment NORMAL (NORMAL) Red Cell Morphology Comment NORMAL (NORMAL) Sodium Level 138 MEQ/L (136-145) Potassium Level 4.1 MEQ/L (3.5-5.1) Chloride Level 105 MEQ/L (98-107) Carbon Dioxide Level 26.4 MEQ/L (21.0-32.0) Anion Gap 7 MEQ/L (5-15) Blood Urea Nitrogen 28 MG/DL (7-18) Creatinine 1.14 MG/DL (0.60-1.30) Estimat Glomerular Filtration 62 ML/MIN (>89) Rate Random Glucose 141 MG/DL (74-106) Calcium Level 8.6 MG/DL (8.5-10.1) Phosphorus Level 3.1 MG/DL (2.5-4.9) Magnesium Level 2.3 MG/DL (1.5-2.5) Result Diagram: 03/19/16 0329 03/19/16 0329 Imaging: Last Impressions Chest X-Ray 03/18/16 0600 Signed Impressions: Service Date/Time: Friday, March 18, 2016 04:52 - CONCLUSION: Right lung focal consolidative opacity now seen. Nelson Mojica MD Aortography 03/17/16 0000 Signed Impressions: Service Date/Time: Thursday, March 17, 2016 11:04 - CONCLUSION: Uncomplicated endograft placement for abdominal aortic aneurysm. The procedure was performed as a combined procedure with Dr. Mckay. Curt Isaacs MD Thoracic Spine CT 03/11/161938 Signed Impressions: Service Date/Time: Friday, March 11, 2016 19:45 - CONCLUSION: Degenerative change with a dextroscoliosis of the upper thoracic spine. An acute bony abnormality is not seen. Ang Mueller MD Pelvis X-Ray 03/11/161938 Signed Impressions: Service Date/Time: Friday, March 11, 2016 19:40 - CONCLUSION: No definite acute fracture is seen. Ang Mueller MD Maxillofacial CT 03/11/161938 Signed Impressions: Service Date/Time: Friday, March 11, 2016 19:41 - CONCLUSION: No acute disease. Ang Mueller MD Lumbar Spine CT 03/11/161938 Signed Impressions: Service Date/Time: Friday, March 11, 2016 19:45 - CONCLUSION: Degenerative change in the lumbar spine. An acute bony abnormality is not seen. Ang Mueller MD Head CT 03/11/161938 Signed Impressions: Service Date/Time: Friday, March 11, 2016 19:39 - CONCLUSION: 1. No acute abnormality seen. 2. Suspected age-related atrophy. Ang Mueller MD Chest CT 03/11/161938 Signed Impressions: Service Date/Time: Friday, March 11, 2016 19:45 - CONCLUSION: 1. Fracturing of the left 4th through 8th ribs. 2. Diffuse emphysematous change. 3. Mild suspected atelectasis or minimal consolidation at the left base. Ang Mueller MD Cervical Spine CT 03/11/161938 Signed Impressions: Service Date/Time: Friday, March 11, 2016 19:39 - CONCLUSION: Degenerative change throughout. An acute bony abnormality is not seen. Ang Mueller MD Abdomen/Pelvis CT 03/11/161938 Signed Impressions: Service Date/Time: Friday, March 11, 2016 19:45 - CONCLUSION: 1. Nondisplaced fractures of the left 7th and 8th ribs. 2. 5.6 cm abdominal aortic aneurysm. 3. Nonspecific small area of low density seen in the anterior aspect of the spleen likely representing an incidental finding such as a hemangioma. A small area of contusion could have this appearance. If this represents a traumatic injury it is mild. Ang Mueller MD Plan: Once the echo is completed, I will follow-up with a full consult note and discuss findings and plan with the patient. Jesi Adams MD Mar 19, 2016 10:40
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
[2016-03-19] MEDS ORDERED: MAGNESIUM CITRATE SOLN 300 ML BTL PO ONE (14:15)
--- NOTE | 2016-03-19 14:38 | PD.CAR.PN ---
CVT Progress Note Subjective/Hospital Course: Patient is doing well this time groins are clean and dry Patient is excellent distal pulses Dr. Blanton consult is greatly appreciated Nothing to add from my point Objective: Vital Signs Date Time Temp Pulse Resp B/P Pulse Ox O2 Delivery O2 Flow Rate FiO2 03/19/16 12:00 95.3 63 18 110/50 98 03/19/16 10:26 94 Nasal Cannula 2.00 03/19/16 09:15 2.00 03/19/16 07:44 20 03/19/16 04:00 97.1 60 18 113/70 98 03/19/16 00:00 97.0 65 20 113/68 98 03/18/16 21:45 98 Nasal Cannula 2.00 03/18/16 20:02 78 03/18/16 20:00 Nasal Cannula 2.00 03/18/16 20:00 97.3 86 20 121/73 97 03/18/16 16:00 97.7 53 17 110/73 97 Labs: Laboratory Tests Test 03/19/16 03:29 White Blood Count 16.6 TH/MM3 (4.0-11.0) Red Blood Count 3.58 MIL/MM3 (4.50-5.90) Hemoglobin 10.9 GM/DL (13.0-17.0) Hematocrit 32.7 % (39.0-51.0) Mean Corpuscular Volume 91.4 FL (80.0-100.0) Mean Corpuscular Hemoglobin 30.5 PG (27.0-34.0) Mean Corpuscular Hemoglobin 33.4 % Concent (32.0-36.0) Red Cell Distribution Width 13.8 % (11.6-17.2) Platelet Count 278 TH/MM3 (150-450) Mean Platelet Volume 8.7 FL (7.0-11.0) Neutrophils (%) (Auto) 88.1 % (16.0-70.0) Lymphocytes (%) (Auto) 5.4 % (9.0-44.0) Monocytes (%) (Auto) 6.3 % (0.0-8.0) Eosinophils (%) (Auto) 0.1 % (0.0-4.0) Basophils (%) (Auto) 0.1 % (0.0-2.0) Neutrophils # (Auto) 14.6 TH/MM3 (1.8-7.7) Lymphocytes # (Auto) 0.9 TH/MM3 (1.0-4.8) Monocytes # (Auto) 1.0 TH/MM3 (0-0.9) Eosinophils # (Auto) 0.0 TH/MM3 (0-0.4) Basophils # (Auto) 0.0 TH/MM3 (0-0.2) CBC Comment AUTO DIFF Differential Total Cells 100 Counted Neutrophils % (Manual) 82 % (16-70) Band Neutrophils % 2 % (0-6) Lymphocytes % 5 % (9-44) Monocytes % 9 % (0-8) Neutrophils # (Manual) 14.3 TH/MM3 (1.8-7.7) Metamyelocytes 2 % (0-1) Differential Comment FINAL DIFF MANUAL Platelet Estimate NORMAL (NORMAL) Platelet Morphology Comment NORMAL (NORMAL) Red Cell Morphology Comment NORMAL (NORMAL) Sodium Level 138 MEQ/L (136-145) Potassium Level 4.1 MEQ/L (3.5-5.1) Chloride Level 105 MEQ/L (98-107) Carbon Dioxide Level 26.4 MEQ/L (21.0-32.0) Anion Gap 7 MEQ/L (5-15) Blood Urea Nitrogen 28 MG/DL (7-18) Creatinine 1.14 MG/DL (0.60-1.30) Estimat Glomerular Filtration 62 ML/MIN (>89) Rate Random Glucose 141 MG/DL (74-106) Calcium Level 8.6 MG/DL (8.5-10.1) Phosphorus Level 3.1 MG/DL (2.5-4.9) Magnesium Level 2.3 MG/DL (1.5-2.5) Result Diagram: 03/19/16 0329 03/19/16 0329 Robinson Mckay MD Mar 19, 2016 14:38
[2016-03-19] MEDS: MIRTAZAPINE 15 MG TAB PO SCH (19:51)
[2016-03-19] MEDS: ATORVASTATIN 20 MG TAB PO SCH (19:51)
[2016-03-19] MEDS: REMOVE OLD PATCH T-DERMAL SCH (19:52)
[2016-03-19] MEDS: SODIUM CHLORIDE 0.9% FLUSH 5 ML FLUSH IVF PRN (19:53)
--- NOTE | 2016-03-19 23:00 | EC ---
Study Study Date:03/19/2016 STUDY CONCLUSIONS SUMMARY - Left ventricle: The cavity size was normal. Wall thickness was normal. Systolic function was normal. The estimated ejection fraction was 55%. Wall motion was normal; there were no regional wall motion abnormalities. - Aortic valve: Trileaflet; severely thickened, severely calcified leaflets. Transvalvular velocity was increased, due to stenosis. There was severe stenosis. Trace regurgitation. Mean gradient: 43mm Hg (S). Peak gradient: 81mm Hg (S). Valve area: 0.88cm^2(VTI). Valve area: 0.72cm^2 (Vmax). - Mitral valve: Calcified annulus. Mild regurgitation. - Right ventricle: The cavity size was mildly dilated. Wall thickness was normal. - Pulmonary arteries: Systolic pressure was mildly increased. PA peak pressure: 39mm Hg (S). If LV function is below 40, please consider prescribing an ACEI or ARB or document rationale for non-use. PROCEDURE DATA STUDY STATUS: Elective. Procedure: Transthoracic echocardiography. Image quality was good. Scanning was performed from the parasternal, apical, and subcostal acoustic windows. Study completion: The patient tolerated the procedure well. Transthoracic echocardiography. M-mode, complete 2D, complete spectral Doppler, and color Doppler. Patient status: Inpatient. CARDIAC ANATOMY LEFT VENTRICLE: The cavity size was normal. Wall thickness was normal. Systolic function was normal. The estimated ejection fraction was 55%. Wall motion was normal; there were no regional wall motion abnormalities. AORTIC VALVE: Trileaflet; severely thickened, severely calcified leaflets. Doppler: Transvalvular velocity was increased, due to stenosis. There was severe stenosis. Trace regurgitation. Valve area: 0.88cm^2(VTI). Valve area: 0.72cm^2 (Vmax). Mean gradient: 43mm Hg (S). Peak gradient: 81mm Hg (S). AORTA: Aortic root: The aortic root was normal in size. MITRAL VALVE: Calcified annulus. Doppler: Transvalvular velocity was within the normal range. There was no evidence for stenosis. Mild regurgitation. Valve area by continuity equation (using LVOT flow): 2.23cm^2. Mean gradient: 1mm Hg (D). Peak gradient: 4mm Hg (D). LEFT ATRIUM: The atrium was normal in size. RIGHT VENTRICLE: The cavity size was mildly dilated. Wall thickness was normal. PULMONIC VALVE: Doppler: Transvalvular velocity was within the normal range. There was no evidence for stenosis. No regurgitation. TRICUSPID VALVE: Structurally normal valve. Doppler: Transvalvular velocity was within the normal range. Trace regurgitation. PULMONARY ARTERY: The main pulmonary artery was normal-sized. Systolic pressure was mildly increased. RIGHT ATRIUM: The atrium was normal in size. PERICARDIUM: There was no pericardial effusion. SYSTEMIC VEINS: Inferior vena cava: The vessel was normal in size. BASIC MEASUREMENTS ADULT Normal Left ventricle LV internal dimension, ED, chordal level, 48.2 mm 43-52 PLAX LV internal dimension, ES, chordal level, 36.9 mm 23-38 PLAX Fractional shortening, chordal level, PLAX *23 % >29 LV posterior wall thickness, ED 7.2 mm IVS/LVPW ratio, ED *1.32 <1.3 Ventricular septum Septal thickness, ED 9.5 mm Left atrium Anterior-posterior dimension 38 mm Right ventricle RV internal dimension, ED, PLAX 32.4 mm 19-38 DOPPLER MEASUREMENTS ADULT Normal Main pulmonary artery Pressure, S *39 mm Hg =30 Aortic valve Peak velocity, S 449 cm/s Mean velocity, S 302 cm/s VTI, S 37.9 cm Mean gradient, S 43 mm Hg Peak gradient, S 81 mm Hg Valve area, VTI 0.88 cm^2 Valve area, Vmax 0.72 cm^2 Mitral valve Peak E-wave velocity 73.5 cm/s Peak A-wave velocity 77.5 cm/s Mean velocity, D 53.4 cm/s Mean gradient, D 1 mm Hg Peak gradient, D 4 mm Hg Peak E/A ratio 0.9 Valve area, LVOT continuity 2.23 cm^2 Maximal regurgitant velocity 564 cm/s Tricuspid valve Regurgitant peak velocity 166 cm/s Peak RV-RA gradient, S 11 mm Hg Maximal regurgitant velocity 166 cm/s Systemic veins Estimated CVP 10 mm Hg Right ventricle RV pressure, S *39 mm Hg <30 LEGEND: Mean values are shown as u=mean value. Asterisk (*) quijano values outside specified normal range. Sohan Lux [id number]
[2016-03-20] VITALS (9 sets, daily range): BP systolic 99–130; BP diastolic 63–77; PULSE 71–95; RESP 17–20; TEMP 97.3–98; O2SAT 93–95
[2016-03-20] MEDS: PIPERACIL-TAZO 4.5 GM PREMIX 100 ML IV SCH ×3 (04:24→15:53)
[2016-03-20] MEDS: CYCLOBENZAPRINE HCL 10 MG TAB PO SCH ×3 (04:24→23:27)
[2016-03-20] MEDS: RESP: ALBUTEROL 2.5 MG/IPRATROPIUM 0.5 MG NEB (SCH) INH ×4 (04:52→20:59)
[2016-03-20] MEDS ORDERED: BISACODYL EC 5 MG TABEC PO ONE (08:15)
[2016-03-20] MEDS ORDERED: BISACODYL 10 MG SUPP RECTAL ONE (08:15)
[2016-03-20] MEDS: DOCUSATE SODIUM 50 MG/SENNA 8.6 MG TAB PO SCH ×2 (09:07→23:27)
[2016-03-20] MEDS: PANTOPRAZOLE SOD 40 MG DELAYED RELEASE TAB PO SCH (09:07)
[2016-03-20] MEDS: MEGESTROL ACETATE 40 MG TAB PO SCH (09:07)
[2016-03-20] MEDS: MAGNESIUM HYDROXIDE SUSP 30 ML CUP PO SCH (09:07)
[2016-03-20] MEDS: LISINOPRIL 10 MG TAB PO SCH (09:08)
[2016-03-20] MEDS: DILTIAZEM HCL 30 MG TAB PO SCH ×4 (09:08→23:27)
[2016-03-20] MEDS: guaiFENesin E.R. 600 MG TAB PO SCH ×2 (09:08→23:27)
[2016-03-20] MEDS: HYDROCHLOROTHIAZIDE 25 MG TAB PO SCH (09:08)
[2016-03-20] MEDS: POLYETHYLENE GLYCOL 17 GM PKG PO SCH (09:08)
[2016-03-20] MEDS: LIDOCAINE HCL 5% PATCH TD SCH (09:09)
[2016-03-20] MEDS: BACITRACIN TOP OINT 15 GM TUBE TOP SCH ×2 (09:12→23:27)
[2016-03-20] MEDS: BUDESONIDE-FORMOTEROL 80/4.5 MCG INHALER INH SCH ×2 (09:12→23:27)
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
[2016-03-20] MEDS: ENOXAPARIN SODIUM 40 MG/0.4 ML SYRINGE SQ SCH (11:11)
[2016-03-20] MEDS ORDERED: MAGNESIUM CITRATE SOLN 300 ML BTL PO ONE (13:00)
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
[2016-03-20] MEDS ORDERED: PANT40TA3 PO (16:47)
[2016-03-20] MEDS ORDERED: CYCL1TAB29 PO (16:47)
[2016-03-20] MEDS ORDERED: DOCU1CAP39 PO (16:47)
[2016-03-20] MEDS ORDERED: ACET325T PO (16:47)
[2016-03-20] MEDS ORDERED: LACT10SO PO (16:47)
[2016-03-20] MEDS ORDERED: ENOX40P SQ (16:47)
[2016-03-20] MEDS ORDERED: POLY17S PO (16:47)
[2016-03-20] MEDS ORDERED: MILKSUS PO (16:47)
[2016-03-20] MEDS ORDERED: BISA10R PR (16:47)
[2016-03-20] MEDS ORDERED: MUCI600T PO (16:47)
[2016-03-20] MEDS ORDERED: SENN1TAB PO (16:47)
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
--- NOTE | 2016-03-20 18:08 | PD.CAR.PN ---
CVT Progress Note Subjective/Hospital Course: Patient is doing well this time groins are clean and dry Patient is excellent distal pulses Dr. Blanton consult is greatly appreciated Nothing to add from my point 03/20/16 Status post abdominal aortic aneurysm endovascular repair Groin incisions are clean and dry No drainage Patient needs aggressive physical therapy Agree with cardiac and cardiovascular evaluation. Patient will need a period of rest before is to undergo any further surgery including aortic valve replacement Will discharge patient to rehabilitation as soon as a bed available Objective: Vital Signs Date Time Temp Pulse Resp B/P Pulse Ox O2 Delivery O2 Flow Rate FiO2 03/20/16 16:00 98.0 88 18 115/69 95 03/20/16 15:15 93 Nasal Cannula 2.00 03/20/16 13:15 71 110/73 03/20/16 12:00 97.3 77 18 128/77 95 03/20/16 09:26 93 Nasal Cannula 2.00 03/20/16 08:00 97.6 73 17 130/66 95 03/20/16 04:00 97.8 95 20 111/69 94 03/20/16 00:00 97.9 75 18 99/63 95 03/19/16 21:24 Nasal Cannula 2.00 03/19/16 21:00 94 Nasal Cannula 2.00 03/19/16 20:00 96.4 70 16 101/63 97 03/19/16 19:14 75 Result Diagram: 03/19/16 0329 03/19/16 0329 Robinson Mckay MD Mar 20, 2016 18:08
[2016-03-20] MEDS: REMOVE OLD PATCH T-DERMAL SCH (21:00)
[2016-03-20] MEDS: MIRTAZAPINE 15 MG TAB PO SCH (23:26)
[2016-03-20] MEDS: ATORVASTATIN 20 MG TAB PO SCH (23:26)
[2016-03-21] VITALS (10 sets, daily range): BP systolic 79–128; BP diastolic 53–69; PULSE 71–76; RESP 20–24; TEMP 95.8–98.4; O2SAT 94–100
[2016-03-21] MEDS: RESP: ALBUTEROL 2.5 MG/IPRATROPIUM 0.5 MG NEB (SCH) INH ×4 (03:38→21:25)
[2016-03-21 05:44] LABS: HEMATOCRIT 34.8 % (39.0-51.0); MEAN CORPUSCULAR HEMOGLOBIN 31.3 PG (27.0-34.0); MEAN CORPUSCULAR HGB CONC 34.4 % (32.0-36.0); PLATELET COUNT 274 TH/MM3 (150-450); RED BLOOD COUNT 3.82 MIL/MM3 (4.50-5.90); REVIEW FLAG FINAL
[2016-03-21] MEDS: CYCLOBENZAPRINE HCL 10 MG TAB PO SCH ×3 (06:00→22:16)
[2016-03-21 06:07] LABS: BICARBONATE 27.2 MEQ/L (21.0-32.0); MAGNESIUM 2.7 MG/DL (1.5-2.5); POTASSIUM 3.8 MEQ/L (3.5-5.1)
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
[2016-03-21] MEDS: MAGNESIUM HYDROXIDE SUSP 30 ML CUP PO SCH (09:14)
[2016-03-21] MEDS: POLYETHYLENE GLYCOL 17 GM PKG PO SCH (09:15)
[2016-03-21] MEDS: LEVOFLOXACIN 750 MG TAB PO SCH (09:16)
[2016-03-21] MEDS: PANTOPRAZOLE SOD 40 MG DELAYED RELEASE TAB PO SCH (09:16)
[2016-03-21] MEDS: MEGESTROL ACETATE 40 MG TAB PO SCH (09:16)
[2016-03-21] MEDS: DOCUSATE SODIUM 50 MG/SENNA 8.6 MG TAB PO SCH ×2 (09:16→21:00)
[2016-03-21] MEDS: guaiFENesin E.R. 600 MG TAB PO SCH ×2 (09:16→22:16)
[2016-03-21] MEDS: HYDROCHLOROTHIAZIDE 25 MG TAB PO SCH (09:17)
[2016-03-21] MEDS: LISINOPRIL 10 MG TAB PO SCH (09:17)
[2016-03-21] MEDS: DILTIAZEM HCL 30 MG TAB PO SCH ×2 (09:17→13:00)
[2016-03-21] MEDS: BUDESONIDE-FORMOTEROL 80/4.5 MCG INHALER INH SCH ×2 (09:18→22:18)
[2016-03-21] MEDS: BACITRACIN TOP OINT 15 GM TUBE TOP SCH ×2 (09:19→22:18)
[2016-03-21] MEDS: LIDOCAINE HCL 5% PATCH TD SCH (09:21)
[2016-03-21] MEDS: ENOXAPARIN SODIUM 40 MG/0.4 ML SYRINGE SQ SCH (13:03)
[2016-03-21] MEDS ORDERED: OXYC-395 PO (14:37)
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
[2016-03-21] MEDS ORDERED: SODIUM CHLORID 0.9% 500 ML INJ 500 ML IV ONE (16:00)
[2016-03-21] MEDS ORDERED: SODIUM CHLOR 0.9% 250 ML INJ 250 ML IV PRN (16:00)
[2016-03-21] MEDS: SODIUM CHLOR 0.9% 1000 ML INJ 1,000 ML IV SCH (17:00)
[2016-03-21 17:17] LABS: AUTOMATED NEUTROPHIL # 9.8 TH/MM3 (1.8-7.7); BASOPHIL % 0.2 % (0.0-2.0); EOSINOPHIL # 0.2 TH/MM3 (0-0.4); EOSINOPHIL % 1.3 % (0.0-4.0); HEMATOCRIT 31.1 % (39.0-51.0); HEMO FLAGS DIFF FINAL; LYMPH % 9.6 % (9.0-44.0); LYMPHOCYTE # 1.1 TH/MM3 (1.0-4.8); MEAN CELL VOLUME 92.2 FL (80.0-100.0); MEAN CORPUSCULAR HEMOGLOBIN 30.3 PG (27.0-34.0); MEAN CORPUSCULAR HGB CONC 32.9 % (32.0-36.0); NEUT % 81.9 % (16.0-70.0); PLATELET COUNT 282 TH/MM3 (150-450); RED BLOOD COUNT 3.38 MIL/MM3 (4.50-5.90); RED CELL DISTRIBUTION WIDTH 13.8 % (11.6-17.2); WHITE BLOOD COUNT 11.9 TH/MM3 (4.0-11.0)
[2016-03-21] MEDS ORDERED: OXYC-392 PO (17:44)
[2016-03-21 17:48] LABS: BICARBONATE 28.5 MEQ/L (21.0-32.0); POTASSIUM 3.8 MEQ/L (3.5-5.1)
[2016-03-21] MEDS: REMOVE OLD PATCH T-DERMAL SCH (21:00)
[2016-03-21] MEDS: ATORVASTATIN 20 MG TAB PO SCH (22:16)
[2016-03-21] MEDS: MIRTAZAPINE 15 MG TAB PO SCH (22:16)
[2016-03-22] VITALS: BP 92/54; PULSE 66; RESP 22; TEMP 96; O2SAT 96
[2016-03-22] MEDS: RESP: ALBUTEROL 2.5 MG/IPRATROPIUM 0.5 MG NEB (SCH) INH ×2 (03:37→09:17)
[2016-03-22 03:39] VITALS: O2SAT 95
[2016-03-22 04:30] VITALS: BP 100/52; PULSE 74; RESP 22; TEMP 97; O2SAT 95
[2016-03-22] MEDS: CYCLOBENZAPRINE HCL 10 MG TAB PO SCH (05:55)
[2016-03-22 06:28] LABS: AUTOMATED NEUTROPHIL # 9.5 TH/MM3 (1.8-7.7); BASOPHIL % 0.2 % (0.0-2.0); EOSINOPHIL # 0.2 TH/MM3 (0-0.4); EOSINOPHIL % 1.8 % (0.0-4.0); HEMATOCRIT 33.1 % (39.0-51.0); LYMPH % 9.9 % (9.0-44.0); LYMPHOCYTE # 1.2 TH/MM3 (1.0-4.8); MEAN CELL VOLUME 91.5 FL (80.0-100.0); MEAN CORPUSCULAR HGB CONC 32.8 % (32.0-36.0); MONO % 7.2 % (0.0-8.0); NEUT % 80.9 % (16.0-70.0); PLATELET COUNT 269 TH/MM3 (150-450); RED BLOOD COUNT 3.62 MIL/MM3 (4.50-5.90); WHITE BLOOD COUNT 11.8 TH/MM3 (4.0-11.0)
[2016-03-22 06:29] LABS: HEMO FLAGS AUTO DIFF
[2016-03-22 06:55] LABS: MAGNESIUM 2.4 MG/DL (1.5-2.5); POTASSIUM 3.7 MEQ/L (3.5-5.1)
[2016-03-22] MEDS: guaiFENesin E.R. 600 MG TAB PO SCH (07:47)
[2016-03-22] MEDS: LEVOFLOXACIN 750 MG TAB PO SCH (07:47)
[2016-03-22] MEDS: PANTOPRAZOLE SOD 40 MG DELAYED RELEASE TAB PO SCH (07:47)
[2016-03-22] MEDS: DOCUSATE SODIUM 50 MG/SENNA 8.6 MG TAB PO SCH (07:47)
[2016-03-22] MEDS: MEGESTROL ACETATE 40 MG TAB PO SCH (07:48)
[2016-03-22] MEDS: LIDOCAINE HCL 5% PATCH TD SCH (07:48)
[2016-03-22] MEDS: POLYETHYLENE GLYCOL 17 GM PKG PO SCH (07:49)
[2016-03-22] MEDS: BACITRACIN TOP OINT 15 GM TUBE TOP SCH (07:49)
[2016-03-22] MEDS: MAGNESIUM HYDROXIDE SUSP 30 ML CUP PO SCH (07:49)
[2016-03-22] MEDS: BUDESONIDE-FORMOTEROL 80/4.5 MCG INHALER INH SCH (07:51)
[2016-03-22] MEDS: SODIUM CHLOR 0.9% 1000 ML INJ 1,000 ML IV SCH (07:51)
[2016-03-22 07:56] LABS: BANDS 1 % (0-6); EOSINOPHILS 1 % (0-4); MYELOCYTES 4 % (0-0); NEUTROPHIL # MANUAL DIFF 9.7 TH/MM3 (1.8-7.7); POLYS (SEG NEUTROPHILS) 77 % (16-70); WBC DIFF SAMPLE 100
[2016-03-22 07:57] LABS: PLATELET ESTIMATE SMEAR NORMAL (NORMAL); PLATELET MORPHOLOGY NORMAL (NORMAL); SCAN/DIFF FINAL DIFF MANUAL
[2016-03-22 08:00] VITALS: BP 136/63; PULSE 105; RESP 19; TEMP 98.7; O2SAT 99
[2016-03-22 09:18] VITALS: O2SAT 97
[2016-03-22] MEDS ORDERED: CYCLOBENZAPRINE HCL 10 MG TAB PO PRN (09:30)
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
[2016-03-22] MEDS: ENOXAPARIN SODIUM 40 MG/0.4 ML SYRINGE SQ SCH (11:40)
[2016-03-22 12:00] VITALS: BP 128/69; PULSE 96; RESP 18; TEMP 98.9; O2SAT 97
--- NOTE | 2016-03-22 12:30 | RADRPT ---
EXAM DATE/TIME: 03/22/2016 12:08 [facility] COMPARISON: CHEST SINGLE AP, March 18, 2016, 4:52. INDICATIONS : Short of breath. MEDICAL HISTORY : Chronic obstructive pulmonary disease. SURGICAL HISTORY : None. ENCOUNTER: Initial ACUITY: 1 week PAIN SCORE: 0/10 LOCATION: Bilateral chest FINDINGS: Thoracolumbar scoliosis is noted. The heart and pulmonary vascularity are normal. There is no alveo lar consolidation, pleural effusion or pneumothorax. CONCLUSION: I see no overt congestive failure. Moderate scoliosis. Tanmay Isaacs MD FACR on March 22, 2016 at 12:23 Board Certified Radiologist. This report was verified electronically.
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
--- NOTE | 2016-03-22 21:47 | MP ---
cc: ROBINSON BOWSER MD DATE OF SURGERY 03/17/2016 PREOPERATIVE DIAGNOSIS Large infrarenal abdominal aortic aneurysm. POSTOPERATIVE DIAGNOSIS Large infrarenal abdominal aortic aneurysm. OPERATIVE PROCEDURE Endovascular abdominal aortic aneurysm repair with [employer] Endurant stent graft. VASCULAR SURGEON Dr. Hidalgo. INTERVENTIONAL RADIOLOGIST Dr. Jose Isaacs ANESTHESIA General. ESTIMATED BLOOD LOSS 50 cc. PROCEDURE The patient prepped and draped in the usual fashion and then both groins are accessed with a microneedle and micro-wire using ultrasound. Over the micro-wire micro-dilators are placed and then Glidewires introduced in both groins and the 6 sheath placed. Through the right groin, the exchange catheter is placed and then an Lunderquist wire over this. The main body of the graft is inserted. The patient is given 5000 units of heparin. Through the left groin, the Gold flush catheter is introduced and then the arteriogram is obtained. The renal arteries are now checked and under magnification the graft is positioned and then the main body of the graft is deployed. Through the left groin the Glidewire is now introduced and then the gate is entered to deploy the sidearm of the graft. Over the Glidewire the exchange flush catheter was placed and then the Lunderquist wire introduced. Once we are sure that we are in the graft, by rotating initially the MPA catheter, the bareback left contralateral limb is inserted and deployed. Next the procedure is terminated by deploying the third limb on the right side. Both of those stay above the level of internal iliac arteries. The balloon is now used to tap down the graft and then the final arteriograms are obtained through the flush catheter shows patent renal artery and absolutely no leak either Type 1 or Type 2. Instruments are now withdrawn. Glidewires are left in place and the Perclose are closed. Then the wires are withdrawn, dressing applied. The patient tolerates the procedure well. At the end of the procedure the patient has excellent distal pulses. Robinson GREER/TERRI /5:16 PM /9:35 PM
== END 2016-03-22 14:02 | DRG 981 ==
LOC: NEPI 19:29 → NEDA 20:14 → MERGE 20:14 → EDBD 20:14 → N03B 20:17 → N07B 03-13 20:31 → N03B 03-17 13:22 → N03A 03-17 16:16 → N07A 03-18 11:18
PROVIDERS: ADMIT Surgery; ATTEND Surgery
PROC: 04V03EZ Restriction of Abdominal Aorta with Branched or Fenestrated Intraluminal Device, One or Two Arteries, Percutaneous Approach (ICD-10-PCS; principal; 2016-03-17)
DX: S22.42XA Multiple fractures of ribs, left side, initial encounter for closed fracture (principal); A41.9 Sepsis, unspecified organism; J18.9 Pneumonia, unspecified organism; N17.9 Acute kidney failure, unspecified; J90 Pleural effusion, not elsewhere classified; N18.3 Chronic kidney disease, stage 3 (moderate); J44.0 Chronic obstructive pulmonary disease with (acute) lower respiratory infection; S27.321A Contusion of lung, unilateral, initial encounter; I47.1 Supraventricular tachycardia; J44.1 Chronic obstructive pulmonary disease with (acute) exacerbation; S06.0X9A Concussion with loss of consciousness of unspecified duration, initial encounter; J98.11 Atelectasis; E86.0 Dehydration; I08.0 Rheumatic disorders of both mitral and aortic valves; S01.21XA Laceration without foreign body of nose, initial encounter; S61.502A Unspecified open wound of left wrist, initial encounter; S50.311A Abrasion of right elbow, initial encounter; I12.9 Hypertensive chronic kidney disease with stage 1 through stage 4 chronic kidney disease, or unspecified chronic kidney disease; R40.2410 Glasgow coma scale score 13-15, unspecified time; I71.4 Abdominal aortic aneurysm, without rupture; G89.29 Other chronic pain; M54.5 Low back pain; S50.312A Abrasion of left elbow, initial encounter; S80.212A Abrasion, left knee, initial encounter; S80.211A Abrasion, right knee, initial encounter; E74.39 Other disorders of intestinal carbohydrate absorption; R73.9 Hyperglycemia, unspecified; V43.52XA Car driver injured in collision with other type car in traffic accident, initial encounter; Y92.488 Other paved roadways as the place of occurrence of the external cause; Y95 Nosocomial condition; Z87.891 Personal history of nicotine dependence
CPT/HCPCS: 34803; 36200; 70450; 70486; 71010; 71260; 72125; 72128; 72131; 72170; 74177; 75625; 75952; 76937; 80048; 80320; 81001; 82435; 82550; 82552; 82565; 82947; 82948; 83036; 83735; 84100; 84132; 84295; 84443; 84520; 85007; 85025; 85027; 85610; 85730; 86850; 86900; 86901; 86920; 87449; 87641; 90471; 90715; 93005; 93306; 94150; 94620; 94640; 94664; 94667; 94668; 96374; 96375; 99291; C1725; C1751; C1760; C1769; C1887; C1894; C9113; G0390; J0131; J0690; J0696; J1644; J1650; J1815; J2250; J2270; J2370; J2405; J2543; J2930; J3010; J7030; J7040; J7512; J7613; Q9967